=== PATIENT | male | born 1945 | race Caucasian/White ===

== ENCOUNTER 2025-08-08 15:20 | Emergency (ER) | payer SELFPAY ==
[2025-08-08 15:27] VITALS: BP 158/74
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
[2025-08-08 18:22] VITALS: BP 149/87
== END 2025-08-08 18:22 | disposition home or self-care (01) ==
LOC: EMR 15:20
PROVIDERS: EMERGENCY PHYSICIAN Emergency Medicine
DX: Z04.1 Encounter for examination and observation following transport accident (principal); V43.52XA Car driver injured in collision with other type car in traffic accident, initial encounter; Y92.410 Unspecified street and highway as the place of occurrence of the external cause; I11.9 Hypertensive heart disease without heart failure
CPT/HCPCS: 99283; 72050